=== PATIENT | female | born 1975 | race African-American/Black ===

== ENCOUNTER 2017-04-11 22:35 | Emergency (ER) | payer MEDICAID ==
[2017-04-11 22:54] VITALS: O2SAT 100
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
--- NOTE | 2017-04-11 23:38 | RAD ---
Procedure: XR ANKLE 2 VIEWS Exam Date: 04/11/2017 Ordering Provider: Saji Baca Clinical Indication: Pain Comparison: None FINDINGS: No acute fracture or subluxation. The articular surface of the left ankle has a normal appearance. No joint effusion. No significant soft-tissue swelling. No subcutaneous gas evident. No radiopaque foreign body. IMPRESSION: 1. Negative exam of the left ankle. Electronically signed by: Marcelo Mariee MD 04/11/2017 11:37 PM CDT
[2017-04-11] MEDS ORDERED: HYDROCOD/APAP 7.5/325 (ER DISP) #3 TAB PO ONE (23:51)
[2017-04-12 00:01] VITALS: BP 123/73; TEMP 97.9
== END 2017-04-12 00:05 | disposition home or self-care (01) ==
LOC: ER 22:35
DX: S93.432A Sprain of tibiofibular ligament of left ankle, initial encounter (principal); Z88.1 Allergy status to other antibiotic agents; X50.1XXA Overexertion from prolonged static or awkward postures, initial encounter; Y92.009 Unspecified place in unspecified non-institutional (private) residence as the place of occurrence of the external cause

== ENCOUNTER 2018-03-16 12:24 | Emergency (ER) | payer MEDICAID, OTHER ==
[2018-03-16] MEDS ORDERED: cefTRIAXone SODIUM 1 GM VIAL IM ONE (12:51)
--- NOTE | 2018-03-16 12:54 | ED.PDOC ---
History of Present Illness - General Chief Complaint: Bite: Animal/Insect/Human Time Seen by Provider: 03/16/18 12:51 Source: patient Exam Limitations: no limitations - History of Present Illness Initial Comments: patient was outside with her shoes off on Saturday night when she was bit by something that she did not see. Patient states that time it was a very sharp sticking pain was bearable and she thought it would get better with time. Over the last couple of days however her fingers become more swollen, red, and hot to touch. She denies any fever, chills, nausea or vomiting. She became concerned that it was swelling more today than yesterday. She is otherwise healthy and has no past medical history. Timing/Duration: other Severity: moderate Improving Factors: nothing Worsening Factors: nothing Associated Symptoms: denies symptoms Allergies/Adverse Reactions: Allergies Azithromycin Allergy (Verified 04/11/17 23:29) Other Home Medications: Ambulatory Orders Naproxen [Naprosyn] 500 mg PO BID #14 tab 04/11/17 Cephalexin Monohydrate [Keflex] 500 mg PO TID #30 cap 03/16/18 Review of Systems - Review of Systems Constitutional: States: no symptoms reported. Denies: chills, fever EENTM: States: no symptoms reported Respiratory: States: no symptoms reported Cardiology: States: no symptoms reported Gastrointestinal/Abdominal: States: no symptoms reported. Denies: nausea, vomiting Genitourinary: States: no symptoms reported Skin: States: see HPI Past Medical History (General) - Patient Medical History Hx Asthma: No Hx Cardiac Disorders: No Hx Hypertension: No Hx Thyroid Disease: No - Vaccination History Hx Tetanus, Diphtheria Vaccination: Yes Hx Influenza Vaccination: Yes Hx Pneumococcal Vaccination: Yes - Social History Hx Tobacco Use: No Hx Alcohol Use: Yes - occassionally Hx Substance Use Treatment: No Hx Depression: No Family Medical History - Family History Mother Family History: No Known Living Status: Still Living Physical Exam - Physical Exam General Appearance: No apparent distress Respiratory: chest non-tender, lungs clear, normal breath sounds, no respiratory distress Cardiovascular/Chest: normal peripheral pulses, regular rate, rhythm, no edema, no gallop, no JVD, no murmur Gastrointestinal/Abdominal: normal bowel sounds, non tender, soft Extremity: other - L foot with small insect bite on the 5th digit, erythema to the midfoot and edema and calor to the ankle Departure - Departure Clinical Impression: Cellulitis Qualifiers: Site of cellulitis: extremity Site of cellulitis of extremity: toe Laterality: left Qualified Code(s): L03.032 - Cellulitis of left toe Disposition: Discharge to Home or Self Care Condition: Good Departure Forms: ED Discharge - Pt. Copy, Patient Portal Self Enrollment Diet: regular diet Referrals: Evie Redd NP [Primary Care Provider] - 1-2 Weeks Home Medications: Ambulatory Orders Naproxen [Naprosyn] 500 mg PO BID #14 tab 04/11/17 Cephalexin Monohydrate [Keflex] 500 mg PO TID #30 cap 03/16/18 Additional Instructions: area to be marked and followed. Return to ER for worsening of redness, swelling , fever >100.5 , emesis, or purulence. Follow up with PCP [facility] to recheck
[2018-03-16 13:24] VITALS: TEMP 97.9
[2018-03-16 13:41] VITALS: BP 119/73; O2SAT 83
== END 2018-03-16 13:42 | disposition home or self-care (01) ==
LOC: ER 12:24
DX: S90.465A Insect bite (nonvenomous), left lesser toe(s), initial encounter (principal); L03.032 Cellulitis of left toe; W57.XXXA Bitten or stung by nonvenomous insect and other nonvenomous arthropods, initial encounter

== ENCOUNTER 2019-11-23 11:52 | Emergency (ER) | payer OTHER ==
[2019-11-23 12:48] VITALS: TEMP 98.3
[2019-11-23] MEDS ORDERED: KETOROLAC TROMETHAMINE INJ 60 MG/2 ML VIAL IM ONE (13:05)
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
[2019-11-23 14:30] VITALS: BP 105/87; O2SAT 99
== END 2019-11-23 14:54 | disposition home or self-care (01) ==
LOC: ER 11:52
DX: S16.1XXA Strain of muscle, fascia and tendon at neck level, initial encounter (principal); S30.0XXA Contusion of lower back and pelvis, initial encounter; M54.6 Pain in thoracic spine; M79.604 Pain in right leg; M79.605 Pain in left leg; M79.601 Pain in right arm; M79.602 Pain in left arm; M25.511 Pain in right shoulder; M25.512 Pain in left shoulder; V40.0XXA Car driver injured in collision with pedestrian or animal in nontraffic accident, initial encounter; Y92.410 Unspecified street and highway as the place of occurrence of the external cause
CPT/HCPCS: 36415; 70450; 71045; 72125; 72170; 80053; 81001; 84484; 84703; 85025; 93005; J1885

== ENCOUNTER 2019-11-30 11:27 | Emergency (ER) | payer OTHER ==
[2019-11-30 11:45] VITALS: O2SAT 99
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
[2019-11-30 12:40] VITALS: BP 105/49
[2019-11-30 12:44] VITALS: TEMP 98.4
== END 2019-11-30 12:44 | disposition home or self-care (01) ==
LOC: ER 11:27
DX: S63.632A Sprain of interphalangeal joint of right middle finger, initial encounter (principal); V43.92XA Unspecified car occupant injured in collision with other type car in traffic accident, initial encounter; Y92.410 Unspecified street and highway as the place of occurrence of the external cause